=== PATIENT | female | born 1965 | race African-American/Black ===

== ENCOUNTER 2023-12-23 01:01 | Inpatient (IN) | payer OTHER ==
[~2023-12-23] VITALS: Ht 170.2 cm; Wt 82.1 kg
[2023-12-23 01:10] VITALS: BP 182/97; PULSE 90; RESP 20; TEMP 97.4; O2SAT 99
[2023-12-23 01:48] VITALS: O2SAT 99
[2023-12-23 02:06] LABS: BASOPHILS # (AUTO) 0.1 K/uL (0.00-0.22); BASOPHILS % (AUTO) 0.5 % (0.0-2.0); EOSINOPHILS # (AUTO) 0.1 K/uL (0-0.4); EOSINOPHILS % (AUTO) 0.7 % (0.0-4.0); HEMATOCRIT 26.1 % (36-48); HEMOGLOBIN 8.8 g/dL (12.0-16.0); LYMPHOCYTES # (AUTO) 1.4 K/uL (2.5-16.5); LYMPHOCYTES % (AUTO) 11.7 % (20.5-51.1); MEAN CORPUSCULAR HEMOGLOBIN 30 pg (27-31); MEAN CORPUSCULAR HGB CONC 34 g/dL (33-37); MEAN CORPUSCULAR VOLUME 87.7 fL (80-94); MONOCYTES # (AUTO) 0.8 K/uL (0.8-1.0); NEUTROPHILS # (AUTO) 9.6 K/uL (1.8-7.7); NEUTROPHILS % (AUTO) 80.1 % (42.2-75.2); PLATELET COUNT (AUTO) 627 K/uL (140-450); RED BLOOD CELL COUNT(AUTO) 2.97 MIL/uL (4.20-5.40); RED CELL DISTRIBUTION WIDTH 17.6 % (11.6-13.7)
[2023-12-23 02:28] LABS: ANION GAP 13.6 (8-16); CALCIUM 9.4 mg/dL (8.5-10.1); CARBON DIOXIDE 28.7 mmol/L (21-32); CREATININE 1.5 mg/dL (0.6-1.3); POTASSIUM 4.3 mmol/L (3.5-5.1)
[2023-12-23 02:32] LABS: INR 1.19 (0.8-1.2); PARTIAL THROMBOPLASTIN TIME 27.2 secs (22-35.6); PROTHROMBIN TIME 12.4 secs (10.8-13.4)
[2023-12-23 02:53] LABS: FLU A ANTIGEN negative (NEGATIVE); FLU B ANTIGEN negative (NEGATIVE)
[2023-12-23 04:23] LABS: APPEARANCE,URINE CLEAR (CLEAR); BILIRUBIN,URINE NEGATIVE (NEGATIVE); BLOOD, URINE NEGATIVE (NEGATIVE); COLOR,URINE YELLOW (YELLOW); LEUKOCYTE ESTERASE ,URINE NEGATIVE (NEGATIVE); NITRITE, URINE NEGATIVE (NEGATIVE); PROTEIN,URINE 2+ (NEGATIVE); UGLUCOSE NEGATIVE (NEGATIVE); UROBILINOGEN,URINE 0.2 EU/dL (0.2 - 1)
[2023-12-23 04:26] LABS: BACTERIA,URINE 0-2 /HPF (None Seen); MUCUS,URINE None Seen /LPF (None Seen); RBC,URINE 0-5 /HPF (0-5); SQUAMOUS EPITHELIAL CELL,UR 0-3 (FEW) /LPF (0-3 (FEW)); WBC,URINE 0 /HPF (0-5)
[2023-12-23] MEDS ORDERED: MAG SULF 2000 MG/WATER PREMIX 50 ML IV PRN (05:40)
[2023-12-23] MEDS ORDERED: MORPHINE SULFATE 4 MG/ML SYR IVP PRN (05:40)
[2023-12-23] MEDS ORDERED: POTASSIUM CHLORIDE 10 MEQ TABER PO PRN (05:40)
[2023-12-23] MEDS ORDERED: ONDANSETRON 4 MG/2 ML VIAL IVP PRN (05:40)
[2023-12-23] MEDS ORDERED: KCL 20 MEQ IN 100 mL PREMIX 200 ML IV PRN (05:40)
[2023-12-23] MEDS ORDERED: FLEPED RC (06:00)
[2023-12-23] MEDS ORDERED: VIBE75TA PO (06:00)
[2023-12-23] MEDS ORDERED: ATOR20TA PO (06:00)
[2023-12-23] MEDS ORDERED: BISA-213 RC (06:00)
[2023-12-23] MEDS ORDERED: TUBE5SOL28 TD (06:00)
[2023-12-23] MEDS ORDERED: METF-350 PO (06:00)
[2023-12-23] MEDS ORDERED: METO25TE2 PO (06:00)
[2023-12-23] MEDS ORDERED: AMLO10TA PO (06:00)
[2023-12-23] MEDS ORDERED: ESCI10TA PO (06:00)
[2023-12-23] MEDS ORDERED: CLON0.5T PO (06:00)
[2023-12-23] MEDS ORDERED: ACET-10509 PO (06:00)
[2023-12-23] MEDS ORDERED: MAGN400S60 PO (06:00)
[2023-12-23] MEDS ORDERED: DOCU-299 PO (06:00)
[2023-12-23] MEDS ORDERED: SYN.075 PO (06:00)
[2023-12-23] MEDS ORDERED: PANT40EC PO (06:00)
[2023-12-23] MEDS ORDERED: APIX5TAB PO (06:00)
[2023-12-23] MEDS ORDERED: HYDR-1100 PO (06:00)
[2023-12-23] MEDS: amLODIPine 5 MG TAB PO SCH (08:09)
[2023-12-23] MEDS ORDERED: CLINICAL MONITORING MC PRN (15:25)
[2023-12-23 15:53] VITALS: O2SAT 95
[2023-12-23] MEDS ORDERED: clonazePAM 0.5 MG TAB PO SCH (17:05)
[2023-12-23] MEDS ORDERED: ESCITALOPRAM 20 MG TAB PO SCH (17:05)
[2023-12-23 19:35] VITALS: O2SAT 96
[2023-12-23] MEDS: clonazePAM 0.5 MG TAB PO SCH (20:30)
[2023-12-23] MEDS: ESCITALOPRAM 20 MG TAB PO SCH (20:30)
[2023-12-23 20:35] VITALS: BP 152/89; PULSE 89; RESP 20; TEMP 98.6; O2SAT 96
[2023-12-23] MEDS: APIXABAN 2.5 MG TAB PO SCH (21:03)
[2023-12-23] MEDS: MEDS-TO-BEDS MC SCH (21:04)
[2023-12-23] MEDS: ZOLPIDEM 5 MG TAB PO PRN (22:27)
[2023-12-24] VITALS (9 sets, daily range): BP systolic 146–182; BP diastolic 81–96; PULSE 74–117; RESP 17–22; TEMP 97.6–98.9; O2SAT 95–99
[2023-12-24] MEDS: CLONIDINE HYDROCHLORIDE 0.1 MG TAB PO PRN (03:37)
[2023-12-24 07:42] LABS: ANION GAP 14.8 (8-16); CALCIUM 9.2 mg/dL (8.5-10.1); CARBON DIOXIDE 26.2 mmol/L (21-32); CREATININE 1.4 mg/dL (0.6-1.3)
[2023-12-24 08:10] LABS: BASOPHILS % (AUTO) 0.5 % (0.0-2.0); EOSINOPHILS # (AUTO) 0.1 K/uL (0-0.4); EOSINOPHILS % (AUTO) 0.9 % (0.0-4.0); HEMATOCRIT 24.2 % (36-48); HEMOGLOBIN 8.4 g/dL (12.0-16.0); LYMPHOCYTES # (AUTO) 1.8 K/uL (2.5-16.5); LYMPHOCYTES % (AUTO) 17.3 % (20.5-51.1); MEAN CORPUSCULAR HEMOGLOBIN 30 pg (27-31); MEAN CORPUSCULAR HGB CONC 35 g/dL (33-37); MEAN CORPUSCULAR VOLUME 87.4 fL (80-94); MONOCYTES # (AUTO) 0.9 K/uL (0.8-1.0); MONOCYTES % (AUTO) 8.8 % (1.7-9.3); NEUTROPHILS # (AUTO) 7.8 K/uL (1.8-7.7); NEUTROPHILS % (AUTO) 72.5 % (42.2-75.2); PLATELET COUNT (AUTO) 532 K/uL (140-450); RED BLOOD CELL COUNT(AUTO) 2.77 MIL/uL (4.20-5.40); RED CELL DISTRIBUTION WIDTH 18.7 % (11.6-13.7); WHITE BLOOD COUNT (AUTO) 10.7 K/uL (4.8-10.8)
[2023-12-24] MEDS ORDERED: amLODIPine 5 MG TAB PO SCH (09:00)
[2023-12-24] MEDS: LEVOTHYROXINE 0.075 MG TAB PO SCH (10:38)
[2023-12-24] MEDS: METOPROLOL SUCCINATE 50 MG TABER PO SCH (10:38)
[2023-12-24] MEDS: ATORVASTATIN 20 MG TAB PO SCH (10:39)
[2023-12-24] MEDS ORDERED: INSULIN LISPRO SLIDING SCALE 100 UNITS/ML VIAL SUBQ PRN (12:25)
[2023-12-24] MEDS ORDERED: OLAN5TAB65 PO (15:57)
[2023-12-24] MEDS ORDERED: APIX5TAB PO (15:57)
[2023-12-24] MEDS: HYDROcodone/APAP 5/325 MG 1 TAB TAB PO PRN (17:03)
[2023-12-24] MEDS: BLOOD GLUCOSE MONITORING 1 DEV DEV FS SCH (17:04)
[2023-12-24] MEDS: OLANZapine 5 MG TAB PO SCH (20:39)
[2023-12-24] MEDS: clonazePAM 0.5 MG TAB PO SCH (20:40)
[2023-12-24] MEDS: ESCITALOPRAM 20 MG TAB PO SCH (20:41)
[2023-12-25 04:00] VITALS: BP 155/82; PULSE 95; RESP 16; TEMP 98.6; O2SAT 94
[2023-12-25 06:56] LABS: BASOPHILS % (AUTO) 0.5 % (0.0-2.0); EOSINOPHILS # (AUTO) 0.2 K/uL (0-0.4); EOSINOPHILS % (AUTO) 2.6 % (0.0-4.0); HEMATOCRIT 26.4 % (36-48); HEMOGLOBIN 8.8 g/dL (12.0-16.0); LYMPHOCYTES # (AUTO) 2.2 K/uL (2.5-16.5); LYMPHOCYTES % (AUTO) 24.7 % (20.5-51.1); MEAN CORPUSCULAR HEMOGLOBIN 29 pg (27-31); MEAN CORPUSCULAR HGB CONC 33 g/dL (33-37); MEAN CORPUSCULAR VOLUME 87.5 fL (80-94); MONOCYTES # (AUTO) 0.7 K/uL (0.8-1.0); MONOCYTES % (AUTO) 7.6 % (1.7-9.3); NEUTROPHILS # (AUTO) 5.8 K/uL (1.8-7.7); NEUTROPHILS % (AUTO) 64.6 % (42.2-75.2); PLATELET COUNT (AUTO) 475 K/uL (140-450); RED BLOOD CELL COUNT(AUTO) 3.02 MIL/uL (4.20-5.40); RED CELL DISTRIBUTION WIDTH 18.1 % (11.6-13.7); WHITE BLOOD COUNT (AUTO) 8.9 K/uL (4.8-10.8)
[2023-12-25 07:22] LABS: ANION GAP 15.1 (8-16); CARBON DIOXIDE 25.5 mmol/L (21-32); CREATININE 1.5 mg/dL (0.6-1.3); POTASSIUM 3.6 mmol/L (3.5-5.1)
[2023-12-25 08:00] VITALS: BP 168/99; PULSE 96; RESP 16; TEMP 98.4; O2SAT 94
[2023-12-25 08:08] VITALS: PULSE 78
[2023-12-25 08:09] VITALS: PULSE 78; RESP 19; O2SAT 99
[2023-12-25] MEDS: LEVOTHYROXINE 0.075 MG TAB PO SCH (09:42)
[2023-12-25 16:00] VITALS: BP 147/88; PULSE 84; RESP 18; TEMP 98.5; O2SAT 94
[2023-12-25 20:00] VITALS: PULSE 78; RESP 20; O2SAT 98
[2023-12-25] MEDS: APIXABAN 2.5 MG TAB PO SCH (20:25)
[2023-12-26 04:00] VITALS: BP 156/70; PULSE 68; RESP 18; TEMP 97.4; O2SAT 97
[2023-12-26] MEDS: LEVOTHYROXINE 0.075 MG TAB PO SCH (06:20)
[2023-12-26 06:44] LABS: BASOPHILS # (AUTO) 0.1 K/uL (0.00-0.22); BASOPHILS % (AUTO) 0.6 % (0.0-2.0); EOSINOPHILS # (AUTO) 0.3 K/uL (0-0.4); EOSINOPHILS % (AUTO) 2.9 % (0.0-4.0); HEMATOCRIT 29.2 % (36-48); HEMOGLOBIN 9.7 g/dL (12.0-16.0); LYMPHOCYTES # (AUTO) 2.5 K/uL (2.5-16.5); LYMPHOCYTES % (AUTO) 28.1 % (20.5-51.1); MEAN CORPUSCULAR HEMOGLOBIN 29 pg (27-31); MEAN CORPUSCULAR HGB CONC 33 g/dL (33-37); MEAN CORPUSCULAR VOLUME 87.7 fL (80-94); MONOCYTES # (AUTO) 0.6 K/uL (0.8-1.0); NEUTROPHILS # (AUTO) 5.3 K/uL (1.8-7.7); NEUTROPHILS % (AUTO) 61.4 % (42.2-75.2); PLATELET COUNT (AUTO) 446 K/uL (140-450); RED BLOOD CELL COUNT(AUTO) 3.33 MIL/uL (4.20-5.40); RED CELL DISTRIBUTION WIDTH 18.2 % (11.6-13.7); WHITE BLOOD COUNT (AUTO) 8.7 K/uL (4.8-10.8)
[2023-12-26 07:12] LABS: ANION GAP 15.7 (8-16); CARBON DIOXIDE 25.9 mmol/L (21-32); CREATININE 1.6 mg/dL (0.6-1.3); POTASSIUM 3.6 mmol/L (3.5-5.1)
[2023-12-26 08:00] VITALS: BP 123/67; PULSE 73; PULSE 87; RESP 18; TEMP 97.9; O2SAT 97; O2SAT 99
[2023-12-26] MEDS: ACETAMINOPHEN 325 MG TAB PO PRN (12:15)
[2023-12-26] MEDS: LORazepam 1 MG TAB PO PRN (16:03)
[2023-12-26 20:00] VITALS: BP 167/93; PULSE 73; PULSE 85; PULSE 87; RESP 18; TEMP 96.3; O2SAT 95; O2SAT 99
[2023-12-27 04:00] VITALS: BP 157/82; PULSE 70; RESP 18; TEMP 97.2; O2SAT 95
[2023-12-27 07:03] LABS: BASOPHILS # (AUTO) 0.1 K/uL (0.00-0.22); BASOPHILS % (AUTO) 0.8 % (0.0-2.0); EOSINOPHILS # (AUTO) 0.3 K/uL (0-0.4); EOSINOPHILS % (AUTO) 3.7 % (0.0-4.0); HEMATOCRIT 27.2 % (36-48); HEMOGLOBIN 9.1 g/dL (12.0-16.0); LYMPHOCYTES # (AUTO) 2.3 K/uL (2.5-16.5); LYMPHOCYTES % (AUTO) 30.9 % (20.5-51.1); MEAN CORPUSCULAR HEMOGLOBIN 30 pg (27-31); MEAN CORPUSCULAR HGB CONC 34 g/dL (33-37); MEAN CORPUSCULAR VOLUME 87.8 fL (80-94); MONOCYTES # (AUTO) 0.6 K/uL (0.8-1.0); MONOCYTES % (AUTO) 8.5 % (1.7-9.3); NEUTROPHILS # (AUTO) 4.2 K/uL (1.8-7.7); NEUTROPHILS % (AUTO) 56.1 % (42.2-75.2); PLATELET COUNT (AUTO) 407 K/uL (140-450); RED BLOOD CELL COUNT(AUTO) 3.09 MIL/uL (4.20-5.40); RED CELL DISTRIBUTION WIDTH 18.4 % (11.6-13.7); WHITE BLOOD COUNT (AUTO) 7.5 K/uL (4.8-10.8)
[2023-12-27 07:25] LABS: ANION GAP 15.2 (8-16); CALCIUM 8.7 mg/dL (8.5-10.1); CARBON DIOXIDE 24.4 mmol/L (21-32); CREATININE 1.6 mg/dL (0.6-1.3); POTASSIUM 3.6 mmol/L (3.5-5.1)
[2023-12-27 08:00] VITALS: BP 161/86; PULSE 86; RESP 18; TEMP 98; O2SAT 98
[2023-12-27] MEDS: hydrALAZINE 25 MG TAB PO SCH (13:25)
[2023-12-27 16:00] VITALS: BP 173/94; PULSE 96; RESP 18; TEMP 98.5; O2SAT 98
[2023-12-27 20:00] VITALS: BP 163/93; PULSE 78; PULSE 86; RESP 18; TEMP 98.5; O2SAT 100; O2SAT 98
[2023-12-28] VITALS: BP 143/79; PULSE 65; RESP 18; TEMP 98.7; O2SAT 98
[2023-12-28 07:14] LABS: BASOPHILS % (AUTO) 0.7 % (0.0-2.0); EOSINOPHILS # (AUTO) 0.3 K/uL (0-0.4); EOSINOPHILS % (AUTO) 4.2 % (0.0-4.0); HEMOGLOBIN 8.3 g/dL (12.0-16.0); LYMPHOCYTES # (AUTO) 2.7 K/uL (2.5-16.5); LYMPHOCYTES % (AUTO) 39.1 % (20.5-51.1); MEAN CORPUSCULAR HEMOGLOBIN 29 pg (27-31); MEAN CORPUSCULAR HGB CONC 33 g/dL (33-37); MEAN CORPUSCULAR VOLUME 87.7 fL (80-94); MONOCYTES # (AUTO) 0.5 K/uL (0.8-1.0); MONOCYTES % (AUTO) 7.4 % (1.7-9.3); NEUTROPHILS # (AUTO) 3.4 K/uL (1.8-7.7); NEUTROPHILS % (AUTO) 48.6 % (42.2-75.2); PLATELET COUNT (AUTO) 355 K/uL (140-450); RED BLOOD CELL COUNT(AUTO) 2.85 MIL/uL (4.20-5.40); RED CELL DISTRIBUTION WIDTH 17.9 % (11.6-13.7)
[2023-12-28 07:32] LABS: ANION GAP 13.7 (8-16); CALCIUM 8.5 mg/dL (8.5-10.1); CARBON DIOXIDE 25.9 mmol/L (21-32); CREATININE 1.7 mg/dL (0.6-1.3); POTASSIUM 3.6 mmol/L (3.5-5.1)
[2023-12-28 08:00] VITALS: BP 159/82; PULSE 63; PULSE 89; RESP 18; TEMP 97.2; O2SAT 96; O2SAT 99
[2023-12-28] MEDS: CRUSHER, PILL MC ONE (09:03)
[2023-12-28 16:00] VITALS: BP 146/69; PULSE 69; RESP 18; TEMP 97.5; O2SAT 100
[2023-12-28 20:00] VITALS: BP 153/92; PULSE 63; PULSE 88; PULSE 89; RESP 18; RESP 20; TEMP 98.1; O2SAT 99
[2023-12-29 04:00] VITALS: BP 147/96; PULSE 78; RESP 20; TEMP 97.3; O2SAT 94
[2023-12-29 08:00] VITALS: BP 155/88; PULSE 87; RESP 18; TEMP 98.1; O2SAT 99
[2023-12-29 08:23] VITALS: PULSE 87; RESP 18; O2SAT 99
[2023-12-29 16:00] VITALS: BP 159/85; PULSE 73; RESP 18; TEMP 98.5; O2SAT 99
[2023-12-29] MEDS ORDERED: OLAN5TAB65 PO (16:05)
== END 2023-12-29 18:50 | disposition home or self-care (01) | DRG 203 ==
LOC: MED 01:01 → MTU 05:45
PROVIDERS: ADMIT Internal Medicine; ATTEND Internal Medicine
DX: M94.0 Chondrocostal junction syndrome [Tietze] (principal); E11.9 Type 2 diabetes mellitus without complications; F20.9 Schizophrenia, unspecified; F31.9 Bipolar disorder, unspecified; I10 Essential (primary) hypertension; Z79.899 Other long term (current) drug therapy; Z86.718 Personal history of other venous thrombosis and embolism
CPT/HCPCS: 36415; 71045; 80048; 81001; 82948; 83735; 83880; 84484; 85025; 85610; 85730; 87081; 93005; 97116; 97163-GP; 99285; J1815; Q0092

== ENCOUNTER 2024-01-14 00:11 | Inpatient (IN) | payer OTHER ==
[~2024-01-14] VITALS: Ht 160 cm; Wt 87.5 kg
[2024-01-14] VITALS (8 sets, daily range): BP systolic 106–130; BP diastolic 55–81; PULSE 64–78; RESP 16–18; TEMP 97.1–98.5; O2SAT 96–100
[~2024-01-14 00:11] MED LIST: ACET-10509 PO; AMLO10TA PO; APIX5TAB PO; ATOR20TA PO; BISA-213 RC; CLON-1201 PO; DOCU-299 PO; ESCI10TA PO; FLEPED RC; HYDR-1100 PO; MAGN400S60 PO; METF-350 PO; METO25TE2 PO; OLAN5TAB65 PO; PANT40EC PO; SYN.075 PO; TUBE5SOL28 TD; VIBE75TA PO
[2024-01-14 01:27] LABS: ANION GAP 15.8 (8-16); CALCIUM 8.6 mg/dL (8.5-10.1); CARBON DIOXIDE 23.6 mmol/L (21-32); CREATININE 1.8 mg/dL (0.6-1.3); POTASSIUM 4.4 mmol/L (3.5-5.1)
[2024-01-14 01:29] LABS: BASOPHILS % (AUTO) 0.4 % (0.0-2.0); EOSINOPHILS # (AUTO) 0.1 K/uL (0-0.4); EOSINOPHILS % (AUTO) 1.4 % (0.0-4.0); HEMATOCRIT 23.3 % (36-48); LYMPHOCYTES # (AUTO) 2.5 K/uL (2.5-16.5); LYMPHOCYTES % (AUTO) 30.1 % (20.5-51.1); MEAN CORPUSCULAR HEMOGLOBIN 31 pg (27-31); MEAN CORPUSCULAR HGB CONC 34 g/dL (33-37); MONOCYTES # (AUTO) 0.6 K/uL (0.8-1.0); NEUTROPHILS # (AUTO) 5.2 K/uL (1.8-7.7); NEUTROPHILS % (AUTO) 61.1 % (42.2-75.2); PLATELET COUNT (AUTO) 476 K/uL (140-450); RED BLOOD CELL COUNT(AUTO) 2.59 MIL/uL (4.20-5.40); WHITE BLOOD COUNT (AUTO) 8.5 K/uL (4.8-10.8)
[2024-01-14 01:36] LABS: ALANINE AMINOTRANSFERASE 15 U/L (12-78); ALBUMIN 2.9 g/dL (3.4-5.0); ALKALINE PHOSPHATASE 91 U/L (50-136); ASPARTATE AMINOTRANSFERASE 9 U/L (15-37); BILIRUBIN,DIRECT 0.1 mg/dL (0.0-0.3); TOTAL BILIRUBIN 0.2 mg/dL (0.0-1.0); TOTAL PROTEIN, SERUM 6.5 g/dL (6.4-8.2)
[2024-01-14 01:46] LABS: INR 1.04 (0.8-1.2); PARTIAL THROMBOPLASTIN TIME 30.2 secs (22-35.6); PROTHROMBIN TIME 10.9 secs (10.8-13.4)
[2024-01-14] MEDS ORDERED: MORPHINE SULFATE 4 MG/ML SYR ONE (01:52)
[2024-01-14] MEDS: MORPHINE SULFATE 4 MG/ML SYR IVP ONE (01:55)
[2024-01-14] MEDS ORDERED: ONDANSETRON 4 MG/2 ML VIAL IVP PRN (03:05)
[2024-01-14] MEDS ORDERED: LORazepam 1 MG TAB PO PRN (03:05)
[2024-01-14] MEDS ORDERED: ACETAMINOPHEN 325 MG TAB PO PRN (03:05)
[2024-01-14] MEDS: HYDROcodone/APAP 5/325 MG 1 TAB TAB PO PRN (06:11)
[2024-01-14] MEDS: METOPROLOL SUCCINATE 50 MG TABER PO SCH (09:00)
[2024-01-14] MEDS: amLODIPine 5 MG TAB PO SCH (09:00)
[2024-01-14] MEDS: PANTOPRAZOLE 40 MG TABEC PO SCH (09:04)
[2024-01-14] MEDS: OLANZapine 5 MG TAB PO SCH (09:04)
[2024-01-14] MEDS: DOCUSATE SODIUM 100 MG GELCAP PO SCH (09:04)
[2024-01-14] MEDS: ATORVASTATIN 20 MG TAB PO SCH (09:04)
[2024-01-14] MEDS: clonazePAM 0.5 MG TAB PO SCH (09:05)
[2024-01-14] MEDS: ESCITALOPRAM 20 MG TAB PO SCH (09:05)
[2024-01-14] MEDS: LEVOTHYROXINE 0.075 MG TAB PO SCH (09:06)
[2024-01-14] MEDS: APIXABAN 2.5 MG TAB PO SCH (09:06)
[2024-01-14] MEDS: GABAPENTIN 100 MG CAP PO SCH (16:21)
[2024-01-14] MEDS: MEDS-TO-BEDS MC SCH (21:30)
[2024-01-15] VITALS (7 sets, daily range): BP systolic 115–155; BP diastolic 56–82; PULSE 67–97; RESP 16–18; TEMP 97.3–98.7; O2SAT 95–99
[2024-01-15 06:33] LABS: BASOPHILS % (AUTO) 0.4 % (0.0-2.0); EOSINOPHILS # (AUTO) 0.2 K/uL (0-0.4); EOSINOPHILS % (AUTO) 2.4 % (0.0-4.0); HEMATOCRIT 23.7 % (36-48); HEMOGLOBIN 8.1 g/dL (12.0-16.0); LYMPHOCYTES # (AUTO) 2.2 K/uL (2.5-16.5); LYMPHOCYTES % (AUTO) 31.7 % (20.5-51.1); MEAN CORPUSCULAR HEMOGLOBIN 30 pg (27-31); MEAN CORPUSCULAR HGB CONC 34 g/dL (33-37); MEAN CORPUSCULAR VOLUME 88.4 fL (80-94); MONOCYTES # (AUTO) 0.4 K/uL (0.8-1.0); NEUTROPHILS # (AUTO) 4.2 K/uL (1.8-7.7); NEUTROPHILS % (AUTO) 59.5 % (42.2-75.2); PLATELET COUNT (AUTO) 482 K/uL (140-450); RED BLOOD CELL COUNT(AUTO) 2.69 MIL/uL (4.20-5.40); RED CELL DISTRIBUTION WIDTH 18.3 % (11.6-13.7); WHITE BLOOD COUNT (AUTO) 7.1 K/uL (4.8-10.8)
[2024-01-15 06:51] LABS: ALBUMIN 2.8 g/dL (3.4-5.0); ANION GAP 13.8 (8-16); CALCIUM 8.7 mg/dL (8.5-10.1); CARBON DIOXIDE 24.5 mmol/L (21-32); CREATININE 1.5 mg/dL (0.6-1.3); POTASSIUM 4.3 mmol/L (3.5-5.1); TOTAL BILIRUBIN 0.3 mg/dL (0.0-1.0); TOTAL PROTEIN, SERUM 6.4 g/dL (6.4-8.2)
[2024-01-15] MEDS: ZOLPIDEM 5 MG TAB PO PRN (21:03)
[2024-01-16] VITALS (8 sets, daily range): BP systolic 148–174; BP diastolic 82–92; PULSE 82–101; RESP 16–18; TEMP 98.2–99.1; O2SAT 97
[2024-01-16] MEDS: hydrALAZINE 25 MG TAB PO PRN (00:15)
[2024-01-16 06:37] LABS: BASOPHILS % (AUTO) 0.4 % (0.0-2.0); EOSINOPHILS # (AUTO) 0.1 K/uL (0-0.4); HEMATOCRIT 24.8 % (36-48); HEMOGLOBIN 8.6 g/dL (12.0-16.0); LYMPHOCYTES # (AUTO) 2.3 K/uL (2.5-16.5); LYMPHOCYTES % (AUTO) 32.8 % (20.5-51.1); MEAN CORPUSCULAR HEMOGLOBIN 30 pg (27-31); MEAN CORPUSCULAR HGB CONC 35 g/dL (33-37); MEAN CORPUSCULAR VOLUME 87.2 fL (80-94); MONOCYTES # (AUTO) 0.5 K/uL (0.8-1.0); MONOCYTES % (AUTO) 6.9 % (1.7-9.3); NEUTROPHILS # (AUTO) 4.1 K/uL (1.8-7.7); NEUTROPHILS % (AUTO) 57.9 % (42.2-75.2); PLATELET COUNT (AUTO) 561 K/uL (140-450); RED BLOOD CELL COUNT(AUTO) 2.85 MIL/uL (4.20-5.40); RED CELL DISTRIBUTION WIDTH 18.2 % (11.6-13.7); WHITE BLOOD COUNT (AUTO) 7.1 K/uL (4.8-10.8)
[2024-01-16 08:12] LABS: ALBUMIN 3.2 g/dL (3.4-5.0); ANION GAP 15.7 (8-16); CALCIUM 9.1 mg/dL (8.5-10.1); CARBON DIOXIDE 24.1 mmol/L (21-32); CREATININE 1.6 mg/dL (0.6-1.3); MAGNESIUM 1.9 mg/dL (1.8-2.4); POTASSIUM 3.8 mmol/L (3.5-5.1); TOTAL BILIRUBIN 0.3 mg/dL (0.0-1.0); TOTAL PROTEIN, SERUM 6.9 g/dL (6.4-8.2)
[2024-01-16] MEDS: CHLORHEXADINE GLUC 2% CLOTH TP SCH (12:06)
[2024-01-16] MEDS: MUPIROCIN CA NASAL 2% 1GM TUBE NS SCH (12:06)
[2024-01-16] MEDS ORDERED: PRED20TA6 PO (16:10)
== END 2024-01-16 21:15 | disposition home or self-care (01) | DRG 48 ==
LOC: MED 00:11 → MTU 03:22 → MED 03:22 → MTU 06:22
PROVIDERS: ADMIT Hospitalist; ATTEND Hospitalist
DX: G57.93 Unspecified mononeuropathy of bilateral lower limbs (principal); N17.0 Acute kidney failure with tubular necrosis; E44.0 Moderate protein-calorie malnutrition; K21.9 Gastro-esophageal reflux disease without esophagitis; E03.9 Hypothyroidism, unspecified; E11.9 Type 2 diabetes mellitus without complications; F20.9 Schizophrenia, unspecified; M79.7 Fibromyalgia; I10 Essential (primary) hypertension; F31.9 Bipolar disorder, unspecified; Z86.73 Personal history of transient ischemic attack (TIA), and cerebral infarction without residual deficits; Z79.899 Other long term (current) drug therapy; Z79.01 Long term (current) use of anticoagulants; Z79.84 Long term (current) use of oral hypoglycemic drugs; Z86.011 Personal history of benign neoplasm of the brain; Z68.34 Body mass index [BMI] 34.0-34.9, adult
CPT/HCPCS: 36415; 71045; 72131; 80048; 80053; 80076; 82948; 83735; 83880; 84484; 85025; 85379; 85610; 85730; 87081; 93005; 96374; 97110; 97116; 97163-GP; 97530; 99285; J2270; Q0092